=== PATIENT | female | born 1985 ===

== ENCOUNTER 2017-09-03 10:00 | Inpatient (IN) | payer OTHER ==
[~2017-09-03] VITALS: Ht 165.1 cm; Wt 53.5 kg
[2017-09-16] MEDS ORDERED: CODE1TAB37 PO (11:11)
== END 2017-09-16 11:24 | DRG 743 ==
LOC: OB/GYN 09-13 04:40 → O/R 09-13 04:40 → SURG 09-13 10:00 → OB/GYN 09-13 12:18
PROVIDERS: Obstetrics & Gynecology
PROC: 0UB90ZZ Excision of Uterus, Open Approach (ICD-10-PCS; principal; 2017-09-13 12:15)
DX: D25.1 Intramural leiomyoma of uterus (principal)